=== PATIENT | female | born 1985 | race Caucasian/White ===

== ENCOUNTER 2019-11-22 14:20 | Outpatient (CLI) | payer OTHER, SELFPAY ==
--- NOTE | ~2019-11-22 | MR_ITS ---
EXAMINATION: MR hip LT wo con DATE: 11/22/2019 15:46 INDICATION: Left hip injury. Tez Danlos syndrome. TECHNIQUE: Magnetic resonance imaging (MRI) of the left hip was performed without intravenous contras t. Sequences included axial and coronal PD-weighted FS FSE and axial T1-weighted FSE of the pelvis. S equences of the hip included 2D FIESTA, T1-weighted fast GRE, and axial, coronal, and sagittal PD-bonnie ghted FS FSE. COMPARISON: Left hip radiographs 08/06/2019 FINDINGS: Bones/cartilage: Bone alignment is normal. No fracture. There is pitting at the left femoral head/neck junction. There is a dysplastic bump at the left femoral head/neck junction anterosuperiorly. The left hip joint car tilage is normal. Labrum: There is a tear of the superolateral left acetabular labrum at the labrocartilaginous junction. Fluid: There is no hip joint effusion. There is mild bilateral trochanteric bursitis. Soft tissues: The iliopsoas tendons, hamstring origins, and gluteal tendons are normal bilaterally. IMPRESSION: 1. Left acetabular labral tear. Reviewed, dictated and finalized at location A.
== END 2019-11-22 14:21 | disposition home or self-care (01) ==
PROVIDERS: PCP Family Medicine; Visit Provider Family Medicine
DX: Q79.60 Ehlers-Danlos syndrome, unspecified (principal); S73.192A Other sprain of left hip, initial encounter
CPT/HCPCS: 73721